=== PATIENT | male | born 1985 | race Hispanic/Latino ===

== ENCOUNTER 2025-04-25 01:34 | Inpatient (IN) | payer BC ==
[2025-04-25] VITALS (26 sets, daily range): BP systolic 154–172; BP diastolic 82–111; PULSE 69–131; RESP 13–20; TEMP 97.3–98.6; O2SAT 97
[~2025-04-25] VITALS: Ht 175.3 cm; Wt 120.4 kg
[2025-04-25 02:05] LABS: IMMATURE GRANULOCYTE ABSOLUTE 0.08 K/uL (0-1); NUCLEATED RED BLOOD CELLS 0.0 % (0.0-0.19); PLATELET COUNT (AUTO) 263 K/uL (130-400); RED BLOOD CELL COUNT(AUTO) 5.30 MIL/uL (4.50-6.20); RED CELL DISTRIBUTION WIDTH 12.4 % (11.0-15.5); WHITE BLOOD COUNT (AUTO) 18.3 K/uL (4.8-10.8)
[2025-04-25] MEDS: DICYCLOMINE HCL 20 MG TAB PO ONE (02:18)
[2025-04-25] MEDS: 0.9%NACL 1000ML 1,000 ML IV SCH ×2 (02:18→09:50)
--- NOTE | 2025-04-25 02:23 | ERN ---
General Chief Complaint: Abdominal Pain Stated Complaint: ABDOMINAL PAIN Time Seen by MD: 01:36 History of Present Illness Initial Comments 39-year-old male history of hypertension here for evaluation of vomiting diarrhea, abdominal pain. Patient states symptoms started yesterday and has had three episodes of vomiting four episodes of diarrhea since. No fever no cough no shortness a breath. No chest pain or palpitation Allergies: Coded Allergies: No Known Drug Allergies (Unverified Allergy, Unknown, 04/25/25) Past Medical History Past Medical History: Hypertension Past Surgical History: Other Surgical History Other: BACK SURGERY 12/12 Gastrointestinal/Abdominal: (+) nausea, (+) vomiting, (+) diarrhea, (+) abdominal pain Review of Systems: was completed, & the rest were negative. Physical Exam General Appearance: (+) no apparent distress Orientation: (+) alert, (+) oriented x 3 Head/Face Trauma: No Eye: bilateral eye normal inspection, bilateral eye PERRL, bilateral eye EOMI Ear, Nose, Throat: (+) hearing grossly normal, (+) normal ENT inspection, (+) moist mucous membraine, (+) normal pharynx Neck: (+) normal inspection, (+) supple Respiratory: (+) chest non-tender, (+) lungs clear, (+) well ventilated Heart: (+) regular; (-) murmur Vascular: (+) no edema Gastrointestinal: (+) soft Gastrointestinal Comment Tenderness to palpation of epigastric region. Results Laboratory and Microbiology Lab and Micro Result Laboratory Tests Test 04/25/25 01:49 White Blood Count 18.3 K/uL (4.8-10.8) H Red Blood Count 5.30 MIL/uL (4.50-6.20) Hemoglobin 15.4 g/dL (14.0-18.0) Hematocrit 45.2 % (42-54) Mean Corpuscular Volume 85.3 fL (79-99) Mean Corpuscular Hemoglobin 29.1 pg (27.0-33.0) Mean Corpuscular Hemoglobin Concent 34.1 g/dL (32.0-36.0) Red Cell Distribution Width 12.4 % (11.0-15.5) Platelet Count 263 K/uL (130-400) Mean Platelet Volume 9.8 fL (7.5-10.5) Immature Granulocyte % (Auto) 0.4 % (0-1) Neutrophils (%) (Auto) 82.0 % (40.0-77.0) H Lymphocytes (%) (Auto) 8.1 % (21.0-51.0) L Monocytes (%) (Auto) 9.2 % (3.0-13.0) Eosinophils (%) (Auto) 0.0 % (0.0-8.0) Basophils (%) (Auto) 0.3 % (0.0-5.0) Neutrophils # (Auto) 15.0 K/uL (1.8-7.7) H Lymphocytes # (Auto) 1.5 K/uL (1.0-4.8) Monocytes # (Auto) 1.7 K/uL (0.1-1.0) H Eosinophils # (Auto) 0.00 K/uL (0.00-0.70) Basophils # (Auto) 0.06 K/uL (0.00-0.20) Absolute Immature Granulocyte (auto 0.08 K/uL (0-1) Nucleated Red Blood Cells 0.0 % (0.0-0.19) White Cell Morphology Comment CONSISTENT W/DIFF Sodium Level 137 mmol/L (136-145) Potassium Level 3.9 mmol/L (3.5-5.1) Chloride Level 101 mmol/L (101-111) Carbon Dioxide Level 25 mmol/L (21-32) Blood Urea Nitrogen 9 mg/dL (7-18) Creatinine 0.7 mg/dL (0.5-1.3) Glomerular Filtration Rate Calc 119 mL/min (>90) Random Glucose 147 mg/dL (70-105) H Lactic Acid Level 2.0 mmol/L (0.8-2.5) Total Calcium 8.9 mg/dL (8.5-10.1) Total Bilirubin 1.1 mg/dL (0.2-1.0) H Direct Bilirubin 0.3 mg/dL (0.0-0.3) Aspartate Amino Transf (AST/SGOT) 52 U/L (10-37) H Alanine Aminotransferase (ALT/SGPT) 136 U/L (12-78) H Alkaline Phosphatase 81 U/L (50-136) Total Protein 7.3 g/dL (6.0-8.3) Albumin 3.8 g/dL (3.5-5.0) Lipase 67 U/L (16-77) MDM 39-year-old male here for evaluation gastroenteritis. We will get labs and imaging and reassess. Disposition pending results of labs and clinical improvement. ED Course Orders Procedure Category Date Status Time Basic Metabolic Panel LAB 04/25/25 Complete 01:44 Cbc With Differential LAB 04/25/25 Complete 01:44 Hepatic Function Panel LAB 04/25/25 Complete 01:44 Lipase LAB 04/25/25 Complete 01:44 Lactic Acid LAB 04/25/25 Complete 01:44 0.9%Nacl 1000ml (Ns PHA 04/25/25 In Process 1000ml) 02:00 Dicyclomine Hcl PHA 04/25/25 Complete (Bentyl 20mg Tab) 02:00 Ondansetron 4mg Inj PHA 04/25/25 Complete (Zofran 4mg Inj) 02:00 Ct Abdomen/Pelvis CT 04/25/25 Resulted W/Contrast 02:33 Morphine 4mg Syg PHA 04/25/25 Complete (Morphine 4mg Syg) 03:00 Iohexol (Omnipaque) PHA 04/25/25 Complete 02:57 Morphine 4mg Syg PHA 04/25/25 Verified (Morphine 4mg Syg) 04:30 Current Medications Medications (Trade) Dose Ordered Sig/Rakan Route PRN Reason Start Time Stop Time Status Last Admin Dose Admin Dicyclomine HCl (Bentyl 20mg Tab) 20 mg ONCE ONCE PO 04/25/25 02:00 04/25/25 02:01 DC 04/25/25 02:18 Iohexol (Omnipaque) 75 ml STK-MED ONCE IV 04/25/25 02:57 04/25/25 02:57 DC Morphine Sulfate (morPHINE 4MG SYG) 4 mg ONCE ONCE IVP 04/25/25 03:00 04/25/25 03:01 DC 04/25/25 02:57 Ondansetron HCl (zoFRAN 4MG INJ) 4 mg ONCE ONCE IV 04/25/25 02:00 04/25/25 02:01 DC 04/25/25 02:18 Sodium Chloride 1,000 ml @ 0 mls/hr Q0M IV 04/25/25 02:00 05/25/25 01:59 04/25/25 02:18 Vital Signs Date Time Temp Pulse Resp B/P (MAP) Pulse Ox O2 Delivery O2 Flow Rate FiO2 04/25/25 03:26 98.4 76 18 175/95 100 Room Air* 0 21 04/25/25 02:14 76 18 177/98 100 Room Air* 0 21 04/25/25 02:09 100.6 77 20 189/114 99 Room Air* 0 21 04/25/25 01:35 100.0 91 16 190/114 100 Room Air 0 DX & DISP Disposition: Inpatient Departure Impression: Primary Impression: Acute cholecystitis Condition: Stable Referrals: NONE (PCP) LIZY MOFFETT MD Apr 25, 2025 02:23
[2025-04-25 02:24] LABS: CREATININE 0.7 mg/dL (0.5-1.3); GLOMERULAR FILTR. RATE CALC 119.0 mL/min (>90); GLUCOSE,RANDOM 147.0 mg/dL (70-105); SODIUM SERUM 137.0 mmol/L (136-145); UREA NITROGEN, BLOOD 9.0 mg/dL (7-18)
[2025-04-25 02:28] LABS: ASPARTATE AMINOTRANSFERASE 52.0 U/L (10-37); TOTAL PROTEIN, SERUM 7.3 g/dL (6.0-8.3)
[2025-04-25 02:31] LABS: WBC MORPHOLOGY CONSISTENT W/DIFF
[2025-04-25] MEDS ORDERED: IOHEXOL-350 75 ML VIAL IV ONE (02:57)
--- NOTE | 2025-04-25 04:14 | HMCIMG ---
EXAM: CT Abdomen and Pelvis without and with IV contrast CLINICAL HISTORY: Transaminitis. Left upper quadrant and lower quadrant pain. TECHNIQUE: Thin collimated axial CT images of the abdomen and pelvis were obtained with sagittal and coronal reformatted images also submitted. CT scan is done according to ALARA (As Low As Reasonably Achievable). COMPARISON: None. FINDINGS: Unremarkable visualized lung parenchyma. Mild hepatomegaly with fatty infiltration of the liver (20 cm). A 12 mm hypodensity in the gallbladder neck with moderately distended gallbladder and subtle gallbladder wall edema are probable changes of cholecystitis. No focal abnormality within the liver, gallbladder, pancreas, spleen, adrenals, or kidneys. Large bowel loops are moderately distended with fecal matter. Scattered diverticulosis of the distal descending and sigmoid colon without evidence of diverticulitis. Bowel loops are normal in caliber without evidence of obstruction or ileus. The appendix is normal. There is no abnormality within the urinary bladder. Unremarkable reproductive organs. Abdominal and pelvic vessels are patent. No lymphadenopathy. No free fluid. There is no acute osseous abnormality. Partial left hemilaminectomy status at the L5-S1 level. Severe bilateral facet arthropathy. Moderate to severe narrowing of the neural foramina. IMPRESSIONS: Acute calculous cholecystitis. Recommend ultrasound of the gallbladder for further evaluation. Uncomplicated colonic diverticula. A component of mild constipation is present in the colon. Mild hepatomegaly with fatty infiltration of the liver. The pancreas and appendix appear unremarkable. No renal calculus or hydronephrosis. /Isidro
[2025-04-25] MEDS: ZOSYN 3.375GM +NS 50ML IV ONE (04:42)
--- NOTE | 2025-04-25 05:07 | NUR ---
KATTY PATIENT OBSERVATION ASSISTANT AND FAMILY AT BEDSIDE.
--- NOTE | 2025-04-25 05:51 | HP ---
[facility] HISTORY [facility] PHYSICAL Date of Service: Apr 25, 2025 Time of Service: 05:18 PCP: Suzi DIXON HISTORY OF PRESENT ILLNESS: This is a 39 year old male with past medical history of hypertension and obesity who presents to the ED for complaints of left upper quadrant and epigastric pain onset Sunday 4 days ago.Patient reports he took Ibuprofen and pain went away.Last he had eaten a chick Fillet and after that abdominal pain came back and patient took Ibuprofen again ,pain didnt go away.Yesterday patient had 2 episodes of nonbloody vomiting and non bloody diarrhea as well and pain intensity has been increasing that is not resolved with Ibuprofen.Patient reports he was taking Ibuprofen round the clock.Patient also reports that pain is non radiating and he had this similar episode 2 years ago but was resolved on its own and he did not seek medical help. Seen and examined patient in the ER awake,alert and coherent,continue to complain of 4/10 abdominal pain.Patient denies fever,chills,chest pain,palpi tation ,cough and shortness of breath.Upon ER arrival patient V/S T100 HR91 RR 16,BP 190/114.latest V/S T98.2,HR 90 BP 153/83 Sat 98% RA.Labs : WBC 18 with negative left shift of neutrophils 82,Hgb 15,Hct 45,Platelet 263. Glucose 147, weeks one, AST 52, ALT 136 chemistry result is normal. CT abdomen and pelvis With contrast result revealed acute calculous cholecystitis .Recommend ultrasound of the gallbladder for further evaluation.Uncomplicated colonic diverticula .A component of mild constipation is present in the colon.Mild hepatomegaly with fatty infiltration of the liver.The pancreas and appendix appear unremarkable .No renal calculus or hydronephrosis.While in the ER patient received Zosyn IV,Morphine 4 mg IV, Zofran 4 mg IV, Bentyl 20 mg po and NS IV fluids.Will admit patient for further medical management. REVIEW OF SYSTEMS CONSTITUTIONAL: Denies fevers, chills, or night sweats. No unintentional weight loss reported. NEUROLOGICAL: Denies headache, amaurosis fugax, motor weakness, sensory deficit, vertigo/spinning sensation, gait abnormalities, or tremors. ENT: No hearing loss, otalgia, otorrhea, rhinitis, rhinorrhea, hoarseness, or sore throat. CARDIOVASCULAR: Denies any exertional angina, dyspnea on exertion, orthopnea, paroxysmal nocturnal dyspnea, palpitations, life-threatening arrhythmias, claudication. PULMONARY: Denies any shortness of breath, cough, phlegm/sputum, hemoptysis, pleuritic chest pain. SLEEP: Denies morning headaches, daytime somnolence or napping. Denies difficulty falling asleep, staying asleep, waking from sleep. Denies knowledge of snoring. GASTROINTESTINAL: Complains of nausea ,vomiting , diarrhea and abdominal pain Denies any type of dysphagia to either liquids or solids. Denies pyrosis, early satiety, constipation, or changes in stool consistency or caliber. Denies coffee-ground emesis, hematemesis, hematochezia, or melanotic stools. GENITOURINARY: Denies frequency, urgency, nocturia, hematuria or incontinence (Storage/Irritative symptoms.) Low urinary stream, straining to void, urinary intermittency or hesitancy, splitting of the voiding stream, terminal dribbling. ENDOCRINOLOGIC: Denies polyuria, polydipsia, polyphagia or heat/cold intolerances. HEMATOLOGIC: Denies thrombophilia/previous clots, or coagulopathy/bleeding disorders. ONCOLOGIC: Denies personal history of malignancy. DERMATOLOGIC: Denies rashes or pruritus. PSYCHIATRIC: Denies any suicidal or homicidal ideation. Denies hallucinations. PAST MEDICAL HISTORY: [ Hypertension and obesity ] PAST SURGICAL HISTORY: [ Back surgery November 2024 ] PAST SOCIAL HISTORY: [Patient lives alone. Patient denies alcohol tobacco and recreational drug use ] FAMILY HISTORY: [ Noncontributory ] Coded Allergies: No Known Drug Allergies (Unverified Allergy, Unknown, 04/25/25) PHYSICAL EXAM GENERAL APPEARANCE: The patient is awake, alert, and oriented, in no acute c ardiopulmonary distress. NEUROLOGICAL: Cranial nerves II-XII grossly intact. Motor is 5/5 in bilateral upper and lower extremities proximal to distal. No sensory deficits. HEENT: Face is symmetric. Pupils are equal and reactive. Extraocular movements are intact. NECK: Supple. No JVD. No thyromegaly. No submental, submandibular, pre- /postauricular, occipital or supraclavicular lymphadenopathy. CHEST: Normal chest expansion. No Telemetry. LUNGS: Absence of any rales, rhonchi or any wheezing. CARDIOVASCULAR: Regular. S1 and S2 normal. No appreciable rubs, murmurs or gallops. ABDOMEN: Left upper quadrant and epigastric tenderness on palpation Soft and nondistended. There is no voluntary guarding, or rigidity. : Deferred. No Pro. EXTREMITIES: Non-edematous and not cyanotic. No clubbing. Good capillary refill. SKIN: No skin breakdown. Vital Sign (Last 24 Hours) 04/25/25 04:50 Temp 98.2 Pulse 90 Resp 18 B/P (MAP) 153/83 Pulse Ox 98 O2 Delivery Room Air* O2 Flow Rate 0 FiO2 21 LABS: Laboratory: Test 04/25/25 01:49 Range/Units White Blood Count 18.3 H 4.8-10.8 K/uL Red Blood Count 5.30 4.50-6.20 MIL/uL Hemoglobin 15.4 14.0-18.0 g/dL Hematocrit 45.2 42-54 % Mean Corpuscular Volume 85.3 79-99 fL Mean Corpuscular Hemoglobin 29.1 27.0-33.0 pg Mean Corpuscular Hemoglobin Concent 34.1 32.0-36.0 g/dL Red Cell Distribution Width 12.4 11.0-15.5 % Platelet Count 263 130-400 K/uL Mean Platelet Volume 9.8 7.5-10.5 fL Immature Granulocyte % (Auto) 0.4 0-1 % Neutrophils (%) (Auto) 82.0 H 40.0-77.0 % Lymphocytes (%) (Auto) 8.1 L 21.0-51.0 % Monocytes (%) (Auto) 9.2 3.0-13.0 % Eosinophils (%) (Auto) 0.0 0.0-8.0 % Basophils (%) (Auto) 0.3 0.0-5.0 % Neutrophils # (Auto) 15.0 H 1.8-7.7 K/uL Lymphocytes # (Auto) 1.5 1.0-4.8 K/uL Monocytes # (Auto) 1.7 H 0.1-1.0 K/uL Eosinophils # (Auto) 0.00 0.00-0.70 K/uL Basophils # (Auto) 0.06 0.00-0.20 K/uL Absolute Immature Granulocyte (auto 0.08 0-1 K/uL Nucleated Red Blood Cells 0.0 0.0-0.19 % White Cell Morphology Comment CONSISTENT W/DIFF Sodium Level 137 136-145 mmol/L Potassium Level 3.9 3.5-5.1 mmol/L Chloride Level 101 101-111 mmol/L Carbon Dioxide Level 25 21-32 mmol/L Blood Urea Nitrogen 9 7-18 mg/dL Creatinine 0.7 0.5-1.3 mg/dL Glomerular Filtration Rate Calc 119 >90 mL/min Random Glucose 147 H 70-105 mg/dL Lactic Acid Level 2.0 0.8-2.5 mmol/L Total Calcium 8.9 8.5-10.1 mg/dL Total Bilirubin 1.1 H 0.2-1.0 mg/dL Direct Bilirubin 0.3 0.0-0.3 mg/dL Aspartate Amino Transf (AST/SGOT) 52 H 10-37 U/L Alanine Aminotransferase (ALT/SGPT) 136 H 12-78 U/L Alkaline Phosphatase 81 50-136 U/L Total Protein 7.3 6.0-8.3 g/dL Albumin 3.8 3.5-5.0 g/dL Lipase 67 16-77 U/L Current Medications Medications (Trade) Dose Ordered Sig/Rakan Route PRN Reason Start Time Stop Time Status Last Admin Dose Admin Sodium Chloride 1,000 ml @ 0 mls/hr Q0M IV 04/25/25 02:00 05/25/25 01:59 04/25/25 02:18 2,000 MLS/HR DIAGNOSTICS / RADIOLOGY: [ ] ASSESSMENT: Acute cholecystitis POA Acute leukocytosis POA during Uncontrolled hypertension POA Hyperglycemia POA Transaminitis likely due to fatty liver POA Obesity POA PLAN: We will admit patient in medical surgical We will keep nothing by mouth We will start on Zosyn IV Q 8 hours for empiric coverage We will start NS @ 100 ml / hr x2 bags and re evaluate We will start on famotidine 20 mg IV daily for GI prophylaxis We will replace electrolytes as needed per protocol We will add prn medication for fever,pain,cough , nausea and vomiting We will reconcile home meds once medlist available We will seek general surgery consultation We will request for abdominal ultrasound We will request labs in am Further orders to follow depending on above results Case discussed with attending physician and came up with above treatment and plan of care. ADVANCED CARE PLANNING 1. Which of the following were discussed? Hospice Care - No Therapeutic options - Yes Advance Directives - No Other discussions - 2. Discussed with who? Patient 3. Voluntary nature of this service was explained to the patient? Yes 4. Amount of time spent - __23 min 5. Reviewed by Physician? (if this service was performed by NPP) Yes Patient seen and examined by me. Agree with note by PROGRAM SUPPORT SPECIALIST SEE ADDITIONAL ORDERS PER CHART DISCUSSED WITH NURSING STAFF JAZ ALAN[address] CAR MECHANIC Apr 25, 2025 05:51
[2025-04-25] MEDS: FAMOTIDINE 20MG VIAL IV SCH (09:49)
[2025-04-25] MEDS ORDERED: LIDOCAINE HCL MPF 1% 5ML VIAL ONE (10:50)
[2025-04-25] MEDS ORDERED: SUCCINYLCHOLINE CHLORIDE 20 MG/ML 10 ML VIAL ONE (10:51)
[2025-04-25] MEDS ORDERED: MIDAZOLAM HCL 1 MG/ML 2ML VIAL ONE (10:51)
--- NOTE | 2025-04-25 11:05 | NUR ---
PT TAKEN DOWN FOR PROCEDURE.
[2025-04-25] MEDS: INDOCYANINE GREEN 25 MG VIAL IJ ONE ×2 (11:22→11:25)
[2025-04-25] MEDS ORDERED: NEOSTIGMINE METHYLSULFATE 1MG/ML IV ONE (12:27)
[2025-04-25] MEDS ORDERED: GLYCOPYRROLATE 0.2 MG/ML 5 ML VIAL ONE (12:27)
--- NOTE | 2025-04-25 12:50 | CONS ---
GENERAL SURGERY CONSULTATION NOTE Date/Time Patient Seen: [ ] Requesting Physician: [ ] Reason for Consultation: [ ] History of Present Illness: 39-year-old male with a history that about a week ago had acute onset of right upper quadrant pain that resolved on its own. It restarted Sunday morning and has been constant accompanied with nausea and vomiting. Still present. Past Medical History: Hypertension Past Surgical History: Back surgery Family History: [ ] Social History: [ ] Habits: [Never] smoker. [Denies] alcohol consumption. [Denies] illicit drug use Current Medications Medications (Trade) Dose Ordered Sig/Rakan Route Start Time Stop Time Status Last Admin Dose Admin Famotidine (Pepcid 20mg Vial) 20 mg DAILY IV 04/25/25 09:00 05/25/25 08:59 04/25/25 09:49 20 MG Losartan Potassium (CozAAR 25MG TAB) 25 mg DAILY PO 04/26/25 09:00 05/26/25 08:59 Piperacillin Sod/ Tazobactam Sod 50 ml @ 12.5 mls/hr Q8H IV 04/25/25 13:00 05/05/25 12:59 Sodium Chloride 1,000 ml @ 0 mls/hr Q0M IV 04/25/25 02:00 05/25/25 01:59 04/25/25 02:18 2,000 MLS/HR Sodium Chloride 1,000 ml @ 100 mls/hr Q10H IV 04/25/25 05:30 05/25/25 05:29 04/25/25 09:50 100 MLS/HR Review of Systems: No shortness of breath, no chest pain. No blood in stool. Only positive as per HPI Physical Examination: GENERAL: [No acute distress.] HEAD: Normocephalic NECK: Trachea midline LUNGS: No respiratory distress HEART: [Normal rate and rhythm. ABD: [Bowel sounds normal, soft, right upper quadrant with positive Munguia sign, tender also at the epigastrium and left upper quadrant EXT: [No clubbing, cyanosis or edema.] SKIN: [No rashes or lesions noted.] NEURO: [Awake, alert, and oriented x3. Vital Signs (last 8hr) Date Time Temp Pulse Resp B/P (MAP) Pulse Ox O2 Delivery O2 Flow Rate FiO2 04/25/25 09:34 97 Room Air* 0 21 04/25/25 08:31 98.2 72 18 169/96 95 Room Air 04/25/25 06:19 98.6 86 18 150/80 98 Room Air* 0 21 04/25/25 05:41 86 18 151/80 96 Room Air* 0 04/25/25 04:50 98.2 90 18 153/83 98 Room Air* 0 21 Laboratory: [ ] Hematology Labs: Test 04/25/25 01:49 Range/Units White Blood Count 18.3 H 4.8-10.8 K/uL Red Blood Count 5.30 4.50-6.20 MIL/uL Hemoglobin 15.4 14.0-18.0 g/dL Hematocrit 45.2 42-54 % Mean Corpuscular Volume 85.3 79-99 fL Mean Corpuscular Hemoglobin 29.1 27.0-33.0 pg Mean Corpuscular Hemoglobin Concent 34.1 32.0-36.0 g/dL Red Cell Distribution Width 12.4 11.0-15.5 % Platelet Count 263 130-400 K/uL Mean Platelet Volume 9.8 7.5-10.5 fL Immature Granulocyte % (Auto) 0.4 0-1 % Neutrophils (%) (Auto) 82.0 H 40.0-77.0 % Lymphocytes (%) (Auto) 8.1 L 21.0-51.0 % Monocytes (%) (Auto) 9.2 3.0-13.0 % Eosinophils (%) (Auto) 0.0 0.0-8.0 % Basophils (%) (Auto) 0.3 0.0-5.0 % Neutrophils # (Auto) 15.0 H 1.8-7.7 K/uL Lymphocytes # (Auto) 1.5 1.0-4.8 K/uL Monocytes # (Auto) 1.7 H 0.1-1.0 K/uL Eosinophils # (Auto) 0.00 0.00-0.70 K/uL Basophils # (Auto) 0.06 0.00-0.20 K/uL Absolute Immature Granulocyte (auto 0.08 0-1 K/uL Nucleated Red Blood Cells 0.0 0.0-0.19 % White Cell Morphology Comment CONSISTENT W/DIFF Chemistry Labs: Test 04/25/25 01:49 Range/Units Sodium Level 137 136-145 mmol/L Potassium Level 3.9 3.5-5.1 mmol/L Chloride Level 101 101-111 mmol/L Carbon Dioxide Level 25 21-32 mmol/L Blood Urea Nitrogen 9 7-18 mg/dL Creatinine 0.7 0.5-1.3 mg/dL Glomerular Filtration Rate Calc 119 >90 mL/min Random Glucose 147 H 70-105 mg/dL Lactic Acid Level 2.0 0.8-2.5 mmol/L Total Calcium 8.9 8.5-10.1 mg/dL Total Bilirubin 1.1 H 0.2-1.0 mg/dL Direct Bilirubin 0.3 0.0-0.3 mg/dL Aspartate Amino Transf (AST/SGOT) 52 H 10-37 U/L Alanine Aminotransferase (ALT/SGPT) 136 H 12-78 U/L Alkaline Phosphatase 81 50-136 U/L Total Protein 7.3 6.0-8.3 g/dL Albumin 3.8 3.5-5.0 g/dL Lipase 67 16-77 U/L Diagnostics / Radiology: [Copy/Paste Echos/Imaging Report here] Assessment: Acute cholecystitis] Plan: [ ] Discussed with the patient laparoscopic/robotic cholecystectomy possible open with all risks including bleeding, infection, injury and need for 2nd surgery. Patient agrees to proceed with surgery. EYAD VIRAMONTES MD Apr 25, 2025 12:50
--- NOTE | 2025-04-25 12:51 | OP ---
Operative Note: DATE OF PROCEDURE: 04/25/25 PROCEDURE PERFORMED: Robotic cholecystectomy. PREOPERATIVE DIAGNOSIS: Acute cholecystitis POSTOPERATIVE DIAGNOSIS: same ANESTHESIA: General endotracheal. SURGEON: Eyad Robledo MD DEVICE LEFT IN PLACE: None. FLUIDS AND BLOOD PRODUCTS: Per anesthesia report. SPECIMENS REMOVED: Gallbladder. COMPLICATIONS: None immediate. PATIENT CONDITION: Stable. Blood loss: Minimal DESCRIPTION OF PROCEDURE: The patient was brought to the operating room and placed on the operating table in a supine position. Once general endotracheal anesthesia was achieved the patient's abdomen is prepped and draped in sterile fashion. Had then proceeded to create a transverse incision at the left upper quadrant at acevedo's point and under direct visualization went through the abdominal wall with a 5 mm Optiview entered the abdominal cavity and obtain a pneumoperitoneum. After obtaining pneumoperitoneum we placed under direct visualization to 8 mm trocars one in the far right flank and the other one in the right lower abdomen. I then switched out the 5 mm trocar in the left upper quadrant for 8 mm trocar. And then placed another 8 mm trocar in the left hemiabdomen to the left of the midline through the rectus muscle for the camera. Place the patient in reverse Trendelenburg and rotated to the left. Brought the robot over top of the patient right and docked the robot. There was significant amount of adhesions to the gallbladder that were taken down with the cautery with dissection. I then proceeded to retract the gallbladder from the fundus and infundibulum and started our dissection of the hilum. We bluntly dissected the hilum to expose the cystic duct and cystic artery and once we had a critical view for safety, which was confirmed with firefly technology. We proceeded to place two clips in the cystic duct proximally and distally. We divided and then did the same with our cystic artery. We then proceeded to remove the gallbladder off the liver bed using Bovie cautery. Once this was done, we then proceeded to evaluate the liver bed for hemostasis. We made sure there was no bile leaks or any bleeding. I then proceeded to bring the 5 mm Endo-Catch bag through the lateral right port. Placed the gallbladder within the bag and within the bag I proceeded to drain it. We then proceeded to remove the trocar in this area and dilated the muscle with a hemostat and proceeded to remove the gallbladder through this right lateral port. I then closed the muscle with a running 2-0 V lock suture. We then proceeded to undocked our all her instruments and the robot. Removed all the trocars from the abdominal wall confirmed no bleeding. the skin incisions were closed using skin stapler a sterile dressing was applied. The patient tolerated the procedure well. All counts correct x2 at the end of the procedure EYAD ROBLEDO MD Apr 25, 2025 12:51
[2025-04-25] MEDS ORDERED: ALBUTEROL INHALER 90MCG/INH IH ONE (12:54)
[2025-04-25] MEDS ORDERED: PROMETHAZINE HCL 25 MG/ML 1ML AMPULE IM PRN (13:00)
[2025-04-25] MEDS ORDERED: ZOSYN 3.375GM+NS 50ML 50 ML IV SCH (13:00)
--- NOTE | 2025-04-25 14:05 | NUR ---
PT RETURN FROM PROCEDURE. DENIES ANY PAIN AT THE MOMENT. ABD DRESSINGS X4 CLEAN AND DRY. FAMILY AT BEDSIDE. STABLE VITAL SIGNS. BED POSITION TO LOWEST POSITION CALL LIGHT WITH IN REACH. PT WAS INSTRUCTED TO USE CALL LIGHT. PT VERBALIZED UNDERSTANDING.
[2025-04-25] MEDS: SUGAMMADEX SODIUM 200 MG/2 ML VIAL IV ONE (14:35)
[2025-04-25] MEDS: ZOSYN 3.375GM+NS 50ML 50 ML IV SCH (15:55)
--- NOTE | 2025-04-25 17:23 | NUR ---
DCP: INITIAL ASSESSMENT Patient lives with brother, Rodri Fair. He has no home services. Patient does have BPM at home. Patient is still employed and is able to complete ADLs independently and drives. PCP is at [facility]. Pharmacy is [facility] located on [facility]. No safety concerns voiced regarding returning home. DCP is home.
[2025-04-25] MEDS: SIMETHICONE 80 MG TAB.CHEW PO SCH (20:47)
--- NOTE | 2025-04-25 21:41 | NUR ---
ROUNDS PATIENT AWAKE AND ALERT. VOICES ALL NEEDS. NO COMPLAINTS OF PAIN VOICED AT THIS TIME. AMBULATING IN HALLWAY. TOLERATING WELL. RESP EVEN AND UNLABORED. NO SOB NOTED. ON ROOM AIR. PATIENT ENCOURAGED TO DO IS. PATIENT PULLING 1000ML AT THIS TIME. MOTHER AT BEDSIDE. CALL LIGHT WITHIN REACH. NO SIGNS OF DISTRESS NOTED UPON EXITING THE ROOM. Addendum: 04/25/25 at 2151 by NIRMALA MCKEON RN RN Amended: Links added.
[2025-04-26] VITALS (7 sets, daily range): BP systolic 130–166; BP diastolic 79–88; PULSE 70–99; RESP 19–20; TEMP 98.4–99.6; O2SAT 98
[2025-04-26 06:12] LABS: IMMATURE GRANULOCYTE ABSOLUTE 0.12 K/uL (0-1); NUCLEATED RED BLOOD CELLS 0.0 % (0.0-0.19); PLATELET COUNT (AUTO) 215 K/uL (130-400); RED BLOOD CELL COUNT(AUTO) 4.62 MIL/uL (4.50-6.20); RED CELL DISTRIBUTION WIDTH 12.8 % (11.0-15.5); WHITE BLOOD COUNT (AUTO) 20.9 K/uL (4.8-10.8)
[2025-04-26 06:24] LABS: INR 1.14 (0.85-1.15)
[2025-04-26 06:39] LABS: ASPARTATE AMINOTRANSFERASE 54.0 U/L (10-37); CREATININE 0.9 mg/dL (0.5-1.3); GLOMERULAR FILTR. RATE CALC 111.0 mL/min (>90); GLUCOSE,RANDOM 124.0 mg/dL (70-105); SODIUM SERUM 138.0 mmol/L (136-145); TOTAL PROTEIN, SERUM 6.4 g/dL (6.0-8.3); UREA NITROGEN, BLOOD 13.0 mg/dL (7-18)
--- NOTE | 2025-04-26 15:19 | PN ---
[facility] PROGRESS NOTE Date of Service: Apr 26, 2025 Time of Service: 15:15 SUBJECTIVE: [ Patient was seen in the room, he was accompanied by family. No complaints overnight, he s/p lap sera POD #1. Labs reviewed with patient, WBC at 20K today, patient had low grade fever overnight. He will remain inpatient and continue with current IV antbx. Diet can be adv per surgeon. Increase ambulation and IS. ] REVIEW OF SYSTEMS CONSTITUTIONAL: Denies fevers, chills, or night sweats. No unintentional weight loss reported. NEUROLOGICAL: Denies headache, amaurosis fugax, motor weakness, sensory deficit, vertigo/spinning sensation, gait abnormalities, or tremors. ENT: No hearing loss, otalgia, otorrhea, rhinitis, rhinorrhea, hoarseness, or sore throat. CARDIOVASCULAR: Denies any exertional angina, dyspnea on exertion, orthopnea, paroxysmal nocturnal dyspnea, palpitations, life-threatening arrhythmias, chris dication. PULMONARY: Denies any shortness of breath, cough, phlegm/sputum, hemoptysis, pleuritic chest pain. SLEEP: Denies morning headaches, daytime somnolence or napping. Denies difficulty falling asleep, staying asleep, waking from sleep. Denies knowledge of snoring. GASTROINTESTINAL: Complains of nausea ,vomiting , diarrhea and abdominal pain Denies any type of dysphagia to either liquids or solids. Denies pyrosis, early satiety, constipation, or changes in stool consistency or caliber. Denies coffee-ground emesis, hematemesis, hematochezia, or melanotic stools. GENITOURINARY: Denies frequency, urgency, nocturia, hematuria or incontinence (Storage/Irritative symptoms.) Low urinary stream, straining to void, urinary intermittency or hesitancy, splitting of the voiding stream, terminal dribbling. ENDOCRINOLOGIC: Denies polyuria, polydipsia, polyphagia or heat/cold in tolerances. HEMATOLOGIC: Denies thrombophilia/previous clots, or coagulopathy/bleeding disorders. ONCOLOGIC: Denies personal history of malignancy. DERMATOLOGIC: Denies rashes or pruritus. PSYCHIATRIC: Denies any suicidal or homicidal ideation. Denies hallucinations. PHYSICAL EXAM GENERAL APPEARANCE: The patient is awake, alert, and oriented, in no acute cardiopulmonary distress. NEUROLOGICAL: Cranial nerves II-XII grossly intact. Motor is 5/5 in bilateral upper and lower extremities proximal to distal. No sensory deficits. HEENT: Face is symmetric. Pupils are equal and reactive. Extraocular movements are intact. NECK: Supple. No JVD. No thyromegaly. No submental, submandibular, pre- /postauricular, occipital or supraclavicular lymphadenopathy. CHEST: Normal chest expansion. No Telemetry. LUNGS: Absence of any rales, rhonchi or any wheezing. CARDIOVASCULAR: Regular. S1 and S2 normal. No appreciable rubs, murmurs or gallops. ABDOMEN: Left upper quadrant and epigastric tenderness on palpation Soft and nondistended. There is no voluntary guarding, or rigidity. : Deferred. No Pro. EXTREMITIES: Non-edematous and not cyanotic. No clubbing. Good capillary refill. SKIN: No skin breakdown. Vital Signs (last 8hr) Date Time Temp Pulse Resp B/P (MAP) Pulse Ox O2 Delivery O2 Flow Rate FiO2 04/26/25 11:32 99.7 80 20 142/84 98 Room Air 21 04/26/25 08:30 98 Room Air* 0 21 04/26/25 08:00 99.1 94 19 165/88 98 Room Air 21 LABS: Laboratory: Test 04/26/25 06:07 04/25/25 01:49 Range/Units White Blood Count 20.9 H 4.8-10.8 K/uL Red Blood Count 4.62 4.50-6.20 MIL/uL Hemoglobin 13.6 L 14.0-18.0 g/dL Hematocrit 40.6 L 42-54 % Mean Corpuscular Volume 87.9 79-99 fL Mean Corpuscular Hemoglobin 29.4 27.0-33.0 pg Mean Corpuscular Hemoglobin Concent 33.5 32.0-36.0 g/dL Red Cell Distribution Width 12.8 11.0-15.5 % Platelet Count 215 130-400 K/uL Mean Platelet Volume 9.7 7.5-10.5 fL Immature Granulocyte % (Auto) 0.6 0-1 % Neutrophils (%) (Auto) 84.3 H 40.0-77.0 % Lymphocytes (%) (Auto) 6.3 L 21.0-51.0 % Monocytes (%) (Auto) 8.7 3.0-13.0 % Eosinophils (%) (Auto) 0.0 0.0-8.0 % Basophils (%) (Auto) 0.1 0.0-5.0 % Neutrophils # (Auto) 17.6 H 1.8-7.7 K/uL Lymphocytes # (Auto) 1.3 1.0-4.8 K/uL Monocytes # (Auto) 1.8 H 0.1-1.0 K/uL Eosinophils # (Auto) 0.00 0.00-0.70 K/uL Basophils # (Auto) 0.03 0.00-0.20 K/uL Absolute Immature Granulocyte (auto 0.12 0-1 K/uL Nucleated Red Blood Cells 0.0 0.0-0.19 % Prothrombin Time 11.9 H 9.6-11.6 SEC Prothromb Time International Ratio 1.14 0.85-1.15 Activated Partial Thromboplast Time 29.3 26.3-35.5 SEC Sodium Level 138 136-145 mmol/L Potassium Level 3.8 3.5-5.1 mmol/L Chloride Level 104 101-111 mmol/L Carbon Dioxide Level 23 21-32 mmol/L Blood Urea Nitrogen 13 7-18 mg/dL Creatinine 0.9 0.5-1.3 mg/dL Glomerular Filtration Rate Calc 111 >90 mL/min Random Glucose 124 H 70-105 mg/dL Total Calcium 8.5 8.5-10.1 mg/dL Magnesium Level 1.70 L 1.80-2.40 mg/dL Total Bilirubin 1.4 H 0.2-1.0 mg/dL Direct Bilirubin 0.5 H 0.0-0.3 mg/dL Aspartate Amino Transf (AST/SGOT) 54 H 10-37 U/L Alanine Aminotransferase (ALT/SGPT) 149 H 12-78 U/L Alkaline Phosphatase 69 50-136 U/L Total Protein 6.4 6.0-8.3 g/dL Albumin 2.9 L 3.5-5.0 g/dL White Cell Morphology Comment CONSISTENT W/DIFF Hemoglobin A1c 5.8 4.0-6.0 % Estimated Average Glucose (eAG) 120 70-126 mg/dL Lactic Acid Level 2.0 0.8-2.5 mmol/L Lipase 67 16-77 U/L Current Medications Medications (Trade) Dose Ordered Sig/Rakan Route PRN Reason Start Time Stop Time Status Last Admin Dose Admin Acetaminophen (Tylenol 325mg Suppository) 325 mg Q4H PRN RC TEMPERATURE GREATER THAN 101.5 04/25/25 10:00 05/25/25 09:59 Acetaminophen (Tylenol 325mg Suppository) 325 mg Q6H PRN RC MILD PAIN (1-3) 04/25/25 10:00 05/25/25 09:59 Famotidine (Pepcid 20mg Vial) 20 mg DAILY IV 04/25/25 09:00 05/25/25 08:59 04/26/25 08:19 20 MG Fentanyl Citrate (FENTanyl CITRate PF 50 MCG/ 1 ML 2ML VIAL) 25 mcg Q5MIN PRN IVP PAIN LEVEL 7 TO 10 04/25/25 13:00 04/25/25 13:52 DC Gabapentin (NEURontin 100 mg CAP) 100 mg TID PO 04/25/25 21:00 05/25/25 20:59 04/26/25 08:19 100 MG Hydralazine HCl (APRESOLine 20MG INJ) 10 mg Q6H PRN IV ADMINISTER FOR SBP > 160 04/25/25 10:00 05/25/25 09:59 04/25/25 20:47 10 MG Ketorolac Tromethamine (toRADol) 30 mg AD PRN IV PAIN LEVEL 1 TO 3 04/25/25 13:00 04/25/25 13:52 DC Ketorolac Tromethamine (toRADol) 30 mg Q6H PRN IVP SEVERE PAIN (7-10) 04/25/25 15:00 04/30/25 14:59 04/26/25 08:20 30 MG Losartan Potassium (CozAAR 25MG TAB) 25 mg DAILY PO 04/26/25 09:00 05/26/25 08:59 04/26/25 08:19 25 MG Magnesium Sulfate 50 ml @ 0 mls/hr PROTOCOL IV 04/26/25 10:30 05/26/25 10:29 Metoclopramide HCl (regLAN 10MG IV) 10 mg AD PRN IVP NAUSEA/VOMITING 04/25/25 13:00 04/25/25 13:52 DC Morphine Sulfate (morPHINE 2MG SYG) 2 mg AD PRN IVP PAIN LEVEL 4 TO 6 04/25/25 13:00 126/25 13:52 DC Morphine Sulfate (morPHINE 2MG SYG) 2 mg Q4H PRN IV SEVERE PAIN (7-10) 04/25/25 05:30 05/02/25 05:29 04/26/25 02:28 2 MG Naloxone HCl (NARcan 0.4mg/1 mL) 0.1 mg AD PRN IVP SHORTNESS OF BREATH 04/25/25 13:00 04/25/25 13:52 DC Ondansetron HCl (zoFRAN 4MG INJ) 4 mg AD PRN IVP NAUSEA/VOMITING 04/25/25 13:00 04/25/25 13:52 DC Ondansetron HCl (zoFRAN 4MG INJ) 4 mg Q6H PRN IV NAUSEA/VOMITING 04/25/25 05:30 04/25/25 09:46 DC Ondansetron HCl (zoFRAN 4MG INJ) 4 mg Q6H PRN IVP NAUSEA/VOMITING 04/25/25 10:00 05/25/25 09:59 04/25/25 09:49 4 MG Piperacillin Sod/ Tazobactam Sod 50 ml @ 12.5 mls/hr Q8H IV 04/25/25 13:00 04/25/25 14:46 DC Piperacillin Sod/ Tazobactam Sod 50 ml @ 12.5 mls/hr Q8H IV 04/25/25 15:00 05/05/25 14:59 04/26/25 06:07 12.5 MLS/HR Promethazine HCl (Phenergan) 25 mg AD PRN IM NAUSEA/VOMITING 04/25/25 13:00 04/25/25 13:52 DC Simethicone (Mylicon) 80 mg TID PO 04/25/25 21:00 05/25/25 20:59 04/26/25 08:19 80 MG Sodium Chloride 1,000 ml @ 0 mls/hr Q0M IV 04/25/25 02:00 05/25/25 01:59 04/25/25 02:18 2,000 MLS/HR Sodium Chloride 1,000 ml @ 100 mls/hr Q10H IV 04/25/25 05:30 05/25/25 05:29 04/26/25 02:28 100 MLS/HR DIAGNOSTICS / RADIOLOGY: [ ] ASSESSMENT: Acute cholecystitis POA Acute leukocytosis POA during Uncontrolled hypertension POA Hyperglycemia POA Transaminitis likely due to fatty liver POA Obesity POA PLAN: We will admit patient in medical surgical Soft diet C/w Zosyn IV Q 8 hours for empiric coverage C/w NS @ 100 ml / hr x2 bags and re evaluate C/w famotidine 20 mg IV daily for GI prophylaxis Encourage ambulation and IS10x/hr We monitor electrolytes and will replace as needed per protocol C/w prn medication for fever,pain,cough , nausea and vomiting Appreciate gen surgery, we will follow post op orders Repeat labs in am C/w GI and DVT ppx Case discussed with attending physician and came up with above treatment and plan of care. ATTESTATION BY PHYSICIAN I have seen and examined the patient. I reviewed the documentation, medical decision making, and treatment plan as noted by the mid-level provider above. I agree with the findings and plan of care. ÓSCAR BURKETT MD, [facility] Apr 26, 2025 15:19
--- NOTE | 2025-04-26 15:39 | PN ---
This is a 39-year-old male status post cholecystectomy by Dr. Robledo Interval history: This 39-year-old male seen in his room resting Patient overall doing well LFTs unremarkable Patient is however with a relatively unchanged white count Patient continues IV fluids and IV antibiotics patient tolerating diet Physical exam General: [Awake alert and oriented] Heart: [Regular rate and rhythm} Lungs: [Clear to auscultation no distress] Abdomen: [Soft, nontender, nondistended] incisions clean and dry Assessment : This is a 39-year-old male status post cholecystectomy by Dr. Robledo Plan: With continued elevated white count patient to remain overnight for observation Repeat CBC tomorrow Advance diet as tolerated Possible discharge tomorrow patient's white count improves Dr. Robledo to be updated in patient's status and nursing report any further acute events Surgical case has been discussed with my supervising physician in the above plan was formulated and agreed upon We appreciate the hospitalist team for us to participate in patient's care. Greater than 45 minutes of time spent patient, reviewing chart, working on documentation Vitals/Labs Vital Signs Date Time Temp Pulse Resp B/P (MAP) Pulse Ox O2 Delivery O2 Flow Rate FiO2 04/26/25 11:32 99.7 80 20 142/84 98 Room Air 21 04/26/25 08:30 0 Laboratory Tests 04/26/25 06:07 Medications Current Medications Sodium Chloride 1,000 ml @ 0 mls/hr Q0M IV Last administered on 04/25/25at 02:18; Start 04/25/25 at 02:00; Stop 05/25/25 at 01:59 Dicyclomine HCl 20 mg ONCE ONCE PO Last administered on 04/25/25at 02:18; Start 04/25/25 at 02:00; Stop 04/25/25 at 02:01; Status DC Ondansetron HCl 4 mg ONCE ONCE IV Last administered on 04/25/25at 02:18; Start 04/25/25 at 02:00; Stop 04/25/25 at 02:01; Status DC Morphine Sulfate 4 mg ONCE ONCE IVP Last administered on 04/25/25at 02:57; Start 04/25/25 at 03:00; Stop 04/25/25 at 03:01; Status DC Iohexol 75 ml STK-MED ONCE IV; Start 04/25/25 at 02:57; Stop 04/25/25 at 02:57; Status DC Morphine Sulfate 4 mg ONCE ONCE IVP Last administered on 04/25/25at 04:42; Start 04/25/25 at 04:30; Stop 04/25/25 at 04:31; Status DC Piperacillin Sod/ Tazobactam Sod 3.375 gm ONCE ONCE IV Last administered on 04/25/25at 04:42; Start 04/25/25 at 04:30; Stop 04/25/25 at 04:31; Status DC Ondansetron HCl 4 mg Q6H PRN IV; Start 04/25/25 at 05:30; Stop 04/25/25 at 09:46; Status DC Piperacillin Sod/ Tazobactam Sod 50 ml @ 12.5 mls/hr Q8H IV; Start 04/25/25 at 13:00; Stop 04/25/25 at 14:46; Status DC Morphine Sulfate 2 mg Q4H PRN IV Last administered on 04/26/25at 02:28; Start 04/25/25 at 05:30; Stop 05/02/25 at 05:29 Sodium Chloride 1,000 ml @ 100 mls/hr Q10H IV Last administered on 04/26/25at 02:28; Start 04/25/25 at 05:30; Stop 05/25/25 at 05:29 Famotidine 20 mg DAILY IV Last administered on 04/26/25at 08:19; Start 04/25/25 at 09:00; Stop 05/25/25 at 08:59 Losartan Potassium 25 mg DAILY PO Last administered on 04/26/25at 08:19; Start 04/26/25 at 09:00; Stop 05/26/25 at 08:59 Acetaminophen 325 mg Q4H PRN RC; Start 04/25/25 at 10:00; Stop 05/25/25 at 09:59 Acetaminophen 325 mg Q6H PRN RC; Start 04/25/25 at 10:00; Stop 05/25/25 at 09:59 Ondansetron HCl 4 mg Q6H PRN IVP Last administered on 04/25/25at 09:49; Start 04/25/25 at 10:00; Stop 05/25/25 at 09:59 Hydralazine HCl 10 mg Q6H PRN IV Last administered on 04/25/25at 20:47; Start 04/25/25 at 10:00; Stop 05/25/25 at 09:59 Lidocaine HCl 5 ml STK-MED ONCE .ROUTE; Start 04/25/25 at 10:50; Stop 04/25/25 at 10:50; Status DC Ondansetron HCl 4 mg STK-MED ONCE .ROUTE; Start 04/25/25 at 10:50; Stop 04/25/25 at 10:50; Status DC Dexamethasone Sodium Phosphate 4 mg STK-MED ONCE .ROUTE; Start 04/25/25 at 10:50; Stop 04/25/25 at 10:50; Status DC Propofol 200 mg STK-MED ONCE IV; Start 04/25/25 at 10:51; Stop 04/25/25 at 10:52; Status DC Succinylcholine Chloride 200 mg STK-MED ONCE .ROUTE; Start 04/25/25 at 10:51; Stop 04/25/25 at 10:52; Status DC Midazolam HCl 2 mg STK-MED ONCE .ROUTE; Start 04/25/25 at 10:51; Stop 04/25/25 at 10:52; Status DC Rocuronium [place] 50 mg STK-MED ONCE .ROUTE; Start 04/25/25 at 10:51; Stop 04/25/25 at 10:52; Status DC Fentanyl Citrate 100 mcg STK-MED ONCE .ROUTE; Start 04/25/25 at 10:52; Stop 04/25/25 at 10:52; Status DC Ropivacaine 150 mg STK-MED ONCE .ROUTE; Start 04/25/25 at 10:52; Stop 04/25/25 at 10:53; Status DC Propofol 200 mg STK-MED ONCE IV; Start 04/25/25 at 10:56; Stop 04/25/25 at 10:56; Status DC Indocyanine Green 25 mg STK-MED ONCE IJ; Start 04/25/25 at 11:22; Stop 04/25/25 at 11:22; Status DC Bupivacaine HCl 2.5 mg STK-MED ONCE IJ; Start 04/25/25 at 11:57; Stop 04/25/25 at 11:57; Status DC Acetaminophen 100 ml @ As Directed STK-MED ONCE .ROUTE; Start 04/25/25 at 12:05; Stop 04/25/25 at 12:05; Status DC Fentanyl Citrate 100 mcg STK-MED ONCE .ROUTE; Start 04/25/25 at 12:23; Stop 04/25/25 at 12:23; Status DC Glycopyrrolate 1 mg STK-MED ONCE .ROUTE; Start 04/25/25 at 12:27; Stop 04/25/25 at 12:27; Status DC Neostigmine Methylsulfate 10 mg STK-MED ONCE IV; Start 04/25/25 at 12:27; Stop 04/25/25 at 12:28; Status DC Ondansetron HCl 4 mg AD PRN IVP; Start 04/25/25 at 13:00; Stop 04/25/25 at 13:52; Status DC Metoclopramide HCl 10 mg AD PRN IVP; Start 04/25/25 at 13:00; Stop 04/25/25 at 13:52; Status DC Promethazine HCl 25 mg AD PRN IM; Start 04/25/25 at 13:00; Stop 04/25/25 at 13:52; Status DC Ketorolac Tromethamine 30 mg AD PRN IV; Start 04/25/25 at 13:00; Stop 04/25/25 at 13:52; Status DC Morphine Sulfate 2 mg AD PRN IVP; Start 04/25/25 at 13:00; Stop 04/25/25 at 13:52; Status DC Fentanyl Citrate 25 mcg Q5MIN PRN IVP; Start 04/25/25 at 13:00; Stop 04/25/25 at 13:52; Status DC Naloxone HCl 0.1 mg AD PRN IVP; Start 04/25/25 at 13:00; Stop 04/25/25 at 13:52; Status DC Albuterol Sulfate 1 inh STK-MED ONCE IH; Start 04/25/25 at 12:54; Stop 04/25/25 at 12:55; Status DC Ketorolac Tromethamine 30 mg Q6H PRN IVP Last administered on 04/26/25at 08:20; Start 04/25/25 at 15:00; Stop 04/30/25 at 14:59 Simethicone 80 mg TID PO Last administered on 04/26/25at 08:19; Start 04/25/25 at 21:00; Stop 1/5/26 at 20:59 Gabapentin 100 mg TID PO Last administered on 04/26/25at 08:19; Start 04/25/25 at 21:00; Stop 05/25/25 at 20:59 Piperacillin Sod/ Tazobactam Sod 50 ml @ 12.5 mls/hr Q8H IV Last administered on 04/26/25at 06:07; Start 04/25/25 at 15:00; Stop 05/05/25 at 14:59 Indocyanine Green 25 mg STK-MED ONCE IJ Last administered on 04/25/25at 11:25; Start 04/25/25 at 11:25; Stop 04/25/25 at 17:25; Status DC Bupivacaine HCl 75 mg STK-MED ONCE IJ Last administered on 04/25/25at 11:58; Start 04/25/25 at 11:58; Stop 04/25/25 at 17:25; Status DC Magnesium Sulfate 50 ml @ 0 mls/hr PROTOCOL IV; Start 04/26/25 at 10:30; Stop 05/26/25 at 10:29 KO MUNSON Jr. PAC Apr 26, 2025 15:39
[2025-04-26] MEDS: MAGNESIUM 2GM PREMIX 50ML 50 ML IV SCH (16:02)
[2025-04-27 00:29] VITALS: BP 126/71; PULSE 72; RESP 18; TEMP 98.4
[2025-04-27 04:54] VITALS: BP 125/76; PULSE 68; RESP 18; TEMP 99.2
[2025-04-27 06:28] LABS: NUCLEATED RED BLOOD CELLS 0.0 % (0.0-0.19); PLATELET COUNT (AUTO) 209.0 K/uL (130-400); RED BLOOD CELL COUNT(AUTO) 4.29 MIL/uL (4.50-6.20); RED CELL DISTRIBUTION WIDTH 12.7 % (11.0-15.5); WHITE BLOOD COUNT (AUTO) 11.9 K/uL (4.8-10.8)
[2025-04-27 06:49] LABS: CREATININE 0.9 mg/dL (0.5-1.3); GLOMERULAR FILTR. RATE CALC 111.0 mL/min (>90); GLUCOSE,RANDOM 95.0 mg/dL (70-105); SODIUM SERUM 140.0 mmol/L (136-145); UREA NITROGEN, BLOOD 20.0 mg/dL (7-18)
[2025-04-27 08:00] VITALS: BP 117/73; PULSE 72; RESP 18; TEMP 98.1
[2025-04-27 11:24] VITALS: BP 115/76; PULSE 72; RESP 18; TEMP 99.9
--- NOTE | 2025-04-27 12:47 | DS ---
Discharge Summary Hospital Course Summary: The patient initially admitted to the hospital April 25, 2025 with the following history of the present illness: This is a 39 year old male with past medical history of hypertension and obesity who presents to the ED for complaints of left upper quadrant and epigastric pain onset Sunday 4 days ago.Patient reports he took Ibuprofen and pain went away.Last he had eaten a chick Fillet and after that abdominal pain came back and patient took Ibuprofen again ,pain didnt go away.Yesterday patient had 2 episodes of nonbloody vomiting and non bloody diarrhea as well and pain intensity has been increasing that is not resolved with Ibuprofen.Patient reports he was taking Ibuprofen round the clock.Patient also reports that pain is non radiating and he had this similar episode 2 years ago but was resolved on its own and he did not seek medical help. Seen and examined patient in the ER awake,alert and coherent,continue to complain of 4/10 abdominal pain.Patient denies fever,chills,chest pain,palpitation ,cough and shortness of breath.Upon ER arrival patient V/S T100 HR91 RR 16,BP 190/114.latest V/S T98.2,HR 90 BP 153/83 Sat 98% RA.Labs : WBC 18 with negative left shift of neutrophils 82,Hgb 15,Hct 45,Platelet 263. Glucose 147, weeks one, AST 52, ALT 136 chemistry result is normal. CT abdomen and pelvis With contrast result revealed acute calculous cholecystitis .Recommend ultrasound of the gallbladder for further evaluation.Uncomplicated colonic diverticula .A component of mild constipation is present in the colon.Mild hepatomegaly with fatty infiltration of the liver.The pancreas and appendix appear unremarkable .No renal calculus or hydronephrosis.While in the ER patient received Zosyn IV,Morphine 4 mg IV, Zofran 4 mg IV, Bentyl 20 mg po and NS IV fluids.Will admit patient for further medical management. HOSPITAL COURSE 04/26 Patient was seen in the room, he was accompanied by family. No complaints overnight, he s/p lap sera POD #1. Labs reviewed with patient, WBC at 20K today, patient had low grade fever overnight. He will remain inpatient and continue with current IV antbx. Diet can be adv per surgeon. Increase ambulation and IS. 04/27 PATIENT REMAINS ADMITTED TO MEDICAL FLOOR, ALERT ORIENTED X3, STATUS POST LAPAROSCOPIC CHOLECYSTECTOMY POD 2., TOLERATED THE PROCEDURE WELL. DENIES DIZZINESS, NO HEADACHE, NO CHEST PAIN, NO SHORTNESS A BREATH, NO NAUSEA, NO VOMITING, NO ABDOMINAL DISCOMFORT, TOLERATING DIET. Economics Consultant(s): General surgery Procedure(s): Operative Note: DATE OF PROCEDURE: 04/25/25 PROCEDURE PERFORMED: Robotic cholecystectomy. PREOPERATIVE DIAGNOSIS: Acute cholecystitis POSTOPERATIVE DIAGNOSIS: same ANESTHESIA: General endotracheal. SURGEON: Eyad Robledo MD DEVICE LEFT IN PLACE: None. FLUIDS AND BLOOD PRODUCTS: Per anesthesia report. SPECIMENS REMOVED: Gallbladder. COMPLICATIONS: None immediate. PATIENT CONDITION: Stable. Blood loss: Minimal DESCRIPTION OF PROCEDURE: The patient was brought to the operating room and placed on the operating table in a supine position. Once general endotracheal anesthesia was achieved the patient's abdomen is prepped and draped in sterile fashion. Had then proceeded to create a transverse incision at the left upper quadrant at acevedo's point and under direct visualization went through the abdominal wall with a 5 mm Optiview entered the abdominal cavity and obtain a pneumoperitoneum. After obtaining pneumoperitoneum we placed under direct visualization to 8 mm trocars one in the far right flank and the other one in the right lower abdomen. I then switched out the 5 mm trocar in the left upper quadrant for 8 mm trocar. And then placed another 8 mm trocar in the left hemiabdomen to the left of the midline through the rectus muscle for the camera. Place the patient in reverse Trendelenburg and rotated to the left. Brought the robot over top of the patient right and docked the robot. There was significant amount of adhesions to the gallbladder that were taken down with the cautery with dissection. I then proceeded to retract the gallbladder from the fundus and infundibulum and started our dissection of the hilum. We bluntly dissected the hilum to expose the cystic duct and cystic artery and once we had a critical view for safety, which was confirmed with firefly technology. We proceeded to place two clips in the cystic duct proximally and distally. We divided and then did the same with our cystic artery. We then proceeded to remove the gallbladder off the liver bed using Bovie cautery. Once this was done, we then proceeded to evaluate the liver bed for hemostasis. We made sure there was no bile leaks or any bleeding. I then proceeded to bring the 5 mm Endo-Catch bag through the lateral right port. Placed the gallbladder within the bag and within the bag I proceeded to drain it. We then proceeded to remove the trocar in this area and dilated the muscle with a hemostat and proceeded to remove the gallbladder through this right lateral port. I then closed the muscle with a running 2-0 V lock suture. We then proceeded to undocked our all her instruments and the robot. Removed all the trocars from the abdominal wall confirmed no bleeding. the skin incisions were closed using skin stapler a sterile dressing was applied. The patient tolerated the procedure well. All counts correct x2 at the end of the procedure EYAD ROBLEDO MD Apr 25, 2025 12:51 Electronically Signed by: EYAD ROBLEDO MD04/25/25 1251 Electronically Co-Signed by: Assessment/Plan: Final Diagnosis Acute cholecystitis POA Status post robotic cholecystectomy 04/25/2025 Acute leukocytosis POA during Uncontrolled hypertension POA Hyperglycemia POA Transaminitis likely due to fatty liver POA Obesity POA Discharge Instructions: Patient to be discharged home today, to follow with primary care physician and General surgery as an outpatient, advised to return to hospital if condition changes. Patient agreed with plan and understood the information provided. Home Medications: Reported Medications Atomoxetine HCl (Atomoxetine HCl) 60 Mg Capsule, 1 CAP PO DAILY for 30 Days, #30 CAP 0 Refills 04/25/25 Losartan Potassium (Losartan Potassium) 25 Mg Tablet, 1 TAB PO DAILY for 30 Day s, #30 TAB 0 Refills 04/25/25 Time spent arranging discharge: 31-60 minutes JOSE DANIEL BLOOD MD Apr 27, 2025 12:47
--- NOTE | 2025-04-27 15:08 | NUR ---
PROVIDER ROUND ZACK GAONA. GAVE OKAY TO DC. FOLLOW UP WITHIN 2 WEEKS.
--- NOTE | 2025-04-27 15:35 | NUR ---
discharge FAMILY AT BEDSIDE.DC'D IV. PT DENIES PAIN AT THIS TIME. PT REPORTS DISCOMFORT TO INCISIONS. INCISIONS DRY AND INTACT. PT AWARE TO FOLLOW UP WITH DR. VIRAMONTES ON 05/04/25 AT 1000. PHONE NUMBER PROVIDED. NO QUESTIONS AT THIS TIME.PT REPORTS TO WAIT FOR MOM FOR RIDE HOME.
== END 2025-04-27 15:55 | disposition home or self-care (01) | DRG 418 ==
LOC: EDH 01:34 → EDHIP 05:20 → 3DH 07:18
PROVIDERS: ADMIT Hospitalist; ATTEND Hospitalist
PROC: 8E0W4CZ Robotic Assisted Procedure of Trunk Region, Percutaneous Endoscopic Approach (ICD-10-PCS; 2025-04-25)
PROC: 3E0T3BZ Introduction of Anesthetic Agent into Peripheral Nerves and Plexi, Percutaneous Approach (ICD-10-PCS; 2025-04-25)
PROC: 0FT44ZZ Resection of Gallbladder, Percutaneous Endoscopic Approach (ICD-10-PCS; principal; 2025-04-25 11:57)
DX: K80.00 Calculus of gallbladder with acute cholecystitis without obstruction (principal); R65.10 Systemic inflammatory response syndrome (SIRS) of non-infectious origin without acute organ dysfunction; E66.9 Obesity, unspecified; K76.0 Fatty (change of) liver, not elsewhere classified; I10 Essential (primary) hypertension; R73.9 Hyperglycemia, unspecified; K57.30 Diverticulosis of large intestine without perforation or abscess without bleeding; K82.8 Other specified diseases of gallbladder; K59.00 Constipation, unspecified; Z68.39 Body mass index [BMI] 39.0-39.9, adult
CPT/HCPCS: 36415; 74177; 80048; 80076; 83036; 83605; 83690; 83735; 85025; 85027; 85610; 85730; 88304; 96374; 96375; 99285; G0378; J0330; J0360; J1100; J1885; J2250; J2270; J2405; J2543; J2704; J2710; J2795; J3010; J3475; J3490; J7030; Q9967; A6206; C1769; J0665; J1308